=== PATIENT | female | born 1980 | race Caucasian/White ===

== ENCOUNTER 2016-08-27 14:54 | Emergency (ER) | payer MEDICAID ==
--- NOTE | 2016-08-29 13:10 | ER ---
ADMIT: 08/27/2016 RM/LOC: ER [facility] MR#: [id number] [facility] [address], [place] [id number] [address]ICK COLVIN [address] [facility] [address] [place] [id number] Emergency Room Report SEX: F AGE: 36 : 1980 DATE: 08/27/2016 HISTORY OF PRESENT ILLNESS: A 36-year-old female, awoke from a nap with sudden right hip pain and back pain in the center of the low back. She has had problems with back pain in the past. See T-sheet for history and physical. DIAGNOSIS: Back pain. Toradol relieved her symptoms. She was given prescription for Ultram. Instructed to follow up with her doctor this coming week. Mendez Kramer MD/ zoranl JOB #: [id number] CC: Mendez Kramer MD, Attending Physician Robbie Rome MD, Family Physician
== END 2016-08-27 17:00 | disposition home or self-care (01) ==
LOC: ER 14:54
DX: M54.5 Low back pain (principal)